=== PATIENT | male | born 2000 | race Asian ===

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

== ENCOUNTER 2022-03-25 00:23 | Emergency (ER) | payer MEDICAID ==
[~2022-03-25] VITALS: Ht 167.6 cm; Wt 61.8 kg
[~2022-03-25 00:23] MED LIST changes: +NAPR375T5 PO
[2022-03-25 00:27] VITALS: BP 107/52
== END 2022-03-25 01:14 | disposition left against medical advice (07) ==
LOC: ER 00:23
DX: R56.9 Unspecified convulsions (principal); Z53.21 Procedure and treatment not carried out due to patient leaving prior to being seen by health care provider

== ENCOUNTER 2024-09-14 20:25 | Inpatient (IN) | payer MEDICAID ==
[~2024-09-14] VITALS: Ht 167.6 cm; Wt 56.1 kg
[~2024-09-14 20:25] MED LIST changes: +NAPR-1479 PO; -NAPR375T5 PO
[2024-09-14 22:01] VITALS: RESP 18; O2SAT 100
[2024-09-14] MEDS ORDERED: loperamide 2mg capsule PO PRN (22:05)
[2024-09-14] MEDS ORDERED: acetaminophen 325mg tablet PO PRN (22:05)
[2024-09-14] MEDS ORDERED: magnesium hydroxide 30ml (MOM) UD suspension PO PRN (22:05)
[2024-09-14] MEDS ORDERED: mag hydrox/Alum hydrox/simeth 30ml oral suspension PO PRN (22:05)
[2024-09-14] MEDS: traZODone 50mg tablet PO SCH (22:56)
[2024-09-14] MEDS: NICOTINE POLACRILEX 2 MG LOZENGE BC PRN (23:01)
[2024-09-14] MEDS: LORazepam 1 MG tablet PO PRN (23:01)
[2024-09-15 06:44] LABS: BASOPHILS % (AUTO) 0.5 % (0-1); EOSINOPHILS # (AUTO) 0.1 X10'3 (0-0.9); EOSINOPHILS % (AUTO) 1.4 % (0-6); HEMATOCRIT 42.5 % (42.0-52.0); HEMOGLOBIN 14.2 g/dl (14.0-17.9); LYMPHOCYTES # (AUTO) 2.4 X10'3 (1.1-4.8); LYMPHOCYTES % (AUTO) 31.5 % (21-51); MEAN CORPUSCULAR HEMOGLOBIN 28.5 PG (27.0-31.0); MEAN CORPUSCULAR HGB CONC 33.3 g/dL (33.0-36.5); MEAN CORPUSCULAR VOLUME 85.6 FL (78-98); MONOCYTES # (AUTO) 0.8 X10'3 (0-0.9); MONOCYTES % (AUTO) 9.9 % (2-12); NEUTROPHILS # (AUTO) 4.4 X10'3 (1.8-7.7); NEUTROPHILS % (AUTO) 56.7 % (42-75); PLATELET COUNT 260 X10'3 (140-440); RED BLOOD COUNT 4.97 X10'6 (4.70-6.10); RED CELL DISTRIBUTION WIDTH 14.2 % (11.5-14.5); WHITE BLOOD COUNT 7.8 X10'3 (4.5-11.0)
[2024-09-15 07:00] VITALS: RESP 16; O2SAT 98
[2024-09-15 07:18] LABS: ALANINE AMINOTRANSFERASE 25 U/L (12-78); ALBUMIN 3.6 G/DL (3.4-5.0); ALBUMIN/GLOBULIN RATIO 1.1 (1.1-1.5); ALKALINE PHOSPHATASE 74 IU/L (46-116); ANION GAP 10 (8-16); ASPARTATE AMINO TRANSFERASE 36 U/L (10-37); BILIRUBIN,TOTAL 1.7 MG/DL (0.1-1.0); BLOOD UREA NITROGEN 14 MG/DL (7-18); BUN/CREATININE RATIO 16.3 (10.0-20.0); CALCIUM 8.4 MG/DL (8.5-10.1); CHLORIDE 105 MMOL/L (99-107); CREATININE 0.86 MG/DL (0.60-1.10); GLUCOSE 79 MG/DL (70-104); SODIUM 139 MMOL/L (135-145); TOTAL CARBON DIOXIDE 24.3 MMOL/L (24-32); TOTAL PROTEIN 6.8 G/DL (6.4-8.2); eCRCL 107 ML/MIN; eGFR > 90 ML/MIN
[2024-09-15] MEDS: nicotine 21mg patch - 24 hr TD SCH (07:35)
[2024-09-15 08:00] VITALS: BP 108/62; PULSE 69; RESP 16; TEMP 98; O2SAT 98
[2024-09-15 08:45] VITALS: BP 100/72; PULSE 76; RESP 14; O2SAT 97
[2024-09-15] MEDS: LORazepam 0.5 MG tablet PO ONE (12:34)
[2024-09-15] MEDS: multivitamins, therapeutics tablet PO ONE (12:35)
[2024-09-15] MEDS: thiamine 100mg tablet PO ONE (12:35)
[2024-09-15] MEDS: ondansetron 4mg rapidly disintigrating tab PO PRN (12:35)
[2024-09-15] MEDS: folic acid 1mg tablet PO ONE (12:35)
[2024-09-15 14:45] VITALS: BP 138/85; PULSE 114; RESP 16; O2SAT 98
[2024-09-15] MEDS: LORazepam 1 MG tablet PO PRN (16:09)
[2024-09-15 19:17] VITALS: BP 137/79; PULSE 93; RESP 18; TEMP 97.8; O2SAT 98
[2024-09-15 19:19] VITALS: RESP 18; O2SAT 98
[2024-09-15] MEDS: thiamine 100mg tablet PO SCH (20:10)
[2024-09-15] MEDS: aripiprazole 10MG tablet PO SCH (21:30)
[2024-09-15] MEDS: sertraline 25mg tablet PO SCH (21:30)
[2024-09-16 07:30] VITALS: BP 101/53; PULSE 53; RESP 18; TEMP 97.1; O2SAT 99
[2024-09-16] MEDS: folic acid 1mg tablet PO SCH (08:24)
[2024-09-16] MEDS: multivitamins, therapeutics tablet PO SCH (08:24)
[2024-09-16] MEDS: hydrOXYzine 25 MG tablet PO PRN (10:12)
[2024-09-16] MEDS ORDERED: ondansetron 4mg rapidly disintigrating tab PO PRN (14:05)
[2024-09-16] MEDS: acetaminophen 325mg tablet PO PRN (16:02)
[2024-09-16] MEDS: LORazepam 0.5 MG tablet PO PRN (17:56)
[2024-09-16 19:30] VITALS: RESP 18; O2SAT 98
[2024-09-16 19:49] VITALS: BP 140/87; PULSE 95; RESP 18; TEMP 98.9; O2SAT 98
[2024-09-16] MEDS: traZODone 50mg tablet PO SCH (20:26)
[2024-09-16] MEDS: sertraline 25mg tablet PO SCH (20:26)
[2024-09-17 07:30] VITALS: BP 106/64; PULSE 81; RESP 12; TEMP 99.1; O2SAT 98
[2024-09-17] MEDS: naltrexone 50mg tablet PO SCH (08:47)
[2024-09-17 09:30] VITALS: BP 132/89; PULSE 97; O2SAT 96
[2024-09-17] MEDS ORDERED: thiamine tablet PO (12:22)
[2024-09-17] MEDS ORDERED: TRAZ-251 PO (12:22)
[2024-09-17] MEDS ORDERED: MULT-25 PO (12:22)
[2024-09-17] MEDS ORDERED: SERT-153 PO (12:22)
[2024-09-17] MEDS ORDERED: FOLI1TAB27 PO (12:22)
[2024-09-17] MEDS ORDERED: NICO-631 TOP (12:22)
[2024-09-17] MEDS ORDERED: HYDR-3686 PO (12:22)
[2024-09-17] MEDS ORDERED: ARIP10TA87 PO (12:22)
[2024-09-17] MEDS ORDERED: NALT50TA5 PO (12:22)
== END 2024-09-17 14:25 | disposition home or self-care (01) | DRG 753 ==
LOC: ADULT MH 21:15 → UNDOADMIN 21:23 → ADULT MH 21:23
PROVIDERS: ADMIT Psychiatry & Neurology Psychiatry; ATTEND Psychiatry & Neurology Psychiatry
PROC: GZHZZZZ Group Psychotherapy (ICD-10-PCS; principal; 2024-09-15)
PROC: GZ51ZZZ Individual Psychotherapy, Behavioral (ICD-10-PCS; 2024-09-15)
DX: F39 Unspecified mood [affective] disorder (principal); R45.851 Suicidal ideations; F10.10 Alcohol abuse, uncomplicated; F90.2 Attention-deficit hyperactivity disorder, combined type; F41.9 Anxiety disorder, unspecified; F91.9 Conduct disorder, unspecified
CPT/HCPCS: 36415; 80053; 85025; 87081; 99285; A6212; A6449; Q0177